=== PATIENT | male | born 1970 | race Caucasian/White ===

== ENCOUNTER → 2019-05-26 | Day surgery (SDC) | payer OTHER ==
[2019-05-23 12:36] LABS: BASOPHILS % 0.7 % (0.0-1.0); EOSINOPHILS # (AUTO) 0.1 (0.0-0.4); EOSINOPHILS % 1.3 % (0.0-6.0); HEMATOCRIT 43.7 % (38.2-49.6); HEMOGLOBIN 15.5 g/dL (14.0-18.0); LYMPHOCYTES # (AUTO) 1.9 (1.0-3.2); LYMPHOCYTES % 32.1 % (18.0-39.1); MEAN CORPUSCULAR HEMOGLOBIN 30.9 pg (28-32); MEAN CORPUSCULAR HGB CONC 35.5 g/dL (31-35); MEAN CORPUSCULAR VOLUME 87.2 fL (81-99); MONOCYTES # (AUTO) 0.4 (0.2-0.8); MONOCYTES % 6.9 % (4.4-11.3); NEUTROPHILS # (AUTO) 3.5 (2.1-6.9); NEUTROPHILS % 58.5 % (38.7-80.0); PLATELET COUNT 232 x10e3/uL (140-360); RED BLOOD COUNT 5.01 x10e6/uL (4.3-5.7); RED CELL DISTRIBUTION WIDTH 12.1 % (11.7-14.4)
[~2019-05-26] MED LIST: ACETAMINOPHEN 1000 MG/100 ML IV ONE; BACITRACIN 50,000 UNIT VIAL ONE; BUPIVACAINE HCL 0.5% INJ 30 ML VIAL INJ ONE; DEXAMETHASONE SOD PHOS INJ 4 MG/ML VIAL ONE; FENTANYL CITRATE/PF 100MCG/2 ML INJ ONE; GLYCOPYRROLATE INJ 1MG/ 5 ML SYR ONE; IRBESARTAN-HCT1 EAC1 PO; KETOROLAC TROMETHAMINE 30 MG/ML VIAL ONE; LEVOFLOXACIN 500MG/D5W 100ML 100 ML IV ONE; LIDOCAINE HCL 2% LOCAL INJ 5 ML SDV VIAL INJ ONE; MIDAZOLAM HCL 2 MG/2 ML VIAL ONE; NEOSTIGMINE 5 MG/5ML SYR ONE; ONDANSETRON HCL INJ 2MG/ML 2ML 2 MG/ML VIAL ONE; PROPOFOL IV EMULSION 10 MG/ML 20 ML VIAL ONE; ROCURONIUM BROMIDE 10 MG/ML 5ML VIAL ONE; SEVOFLURANE INHAL SOLN 250 ML PEN BTL ONE
[2019-05-26 15:30] VITALS: BP 128/82
--- NOTE | 2019-05-26 22:07 | Operative Report ---
DATE OF PROCEDURE: 05/26/2019 SURGEON: Vic Hoover MD PREOPERATIVE DIAGNOSIS: Umbilical hernia. POSTOPERATIVE DIAGNOSIS: Umbilical hernia. PROCEDURE: Repair of umbilical hernia. PE TEACHER: None. ANESTHESIA: General. INDICATIONS AND FINDINGS: The patient is a 48-year-old male, who complains of a bulge in the umbilicus. At surgery, there was an umbilical hernia with a herniated mass that was about 3.5 cm in diameter and a fascial defect that was about 1.2 cm in diameter. TECHNIQUE: After adequate general anesthesia and the patient in supine position, the abdomen was prepped and draped in a sterile fashion with ChloraPrep solution. Transverse incision made above the umbilicus that was carried down through subcutaneous tissue. The umbilicus was dissected free from the herniated mass. The herniated mass was dissected free down to the fascia and freed from the fascia throughout circumference of the hernia defect. Herniated mass was then reduced beneath the fascia. The fascial defect was then closed transversely with a running suture of #0 Prolene. Hemostasis of the wound was seen to be adequate. The wound was irrigated with saline, inspected for hemostasis, which was seen to be adequate. The wound was then infiltrated with 0.5% Marcaine. The umbilicus was sutured to the fascia using 3-0 Vicryl. The subcutaneous tissue was closed with running suture of 3-0 Vicryl. Skin was closed with a running subcuticular suture with 4-0 Vicryl. Dermabond and sterile dressing were applied. The patient tolerated the procedure well. Estimated blood loss was less than 5 mL. There were no complications. All counts were correct. The patient was taken to the recovery room in satisfactory condition. Vic Hoover MD DWG/MODL /[id number] cc: Dr. Willis
== END | disposition home or self-care (01) ==
LOC: OR 12:09
PROVIDERS: ATTEND Surgery
DX: K42.9 Umbilical hernia without obstruction or gangrene (principal); Z01.812 Encounter for preprocedural laboratory examination; E78.5 Hyperlipidemia, unspecified; I10 Essential (primary) hypertension; Z01.810 Encounter for preprocedural cardiovascular examination; Z88.0 Allergy status to penicillin
CPT/HCPCS: 36415; 49585; 85025; 93005; J0131; J1100; J1885; J1956; J2001; J2250; J2405; J2704; J3010; J3490